=== PATIENT | male | born 1995 | race Caucasian/White ===

== ENCOUNTER 2021-02-22 18:39 | Emergency (ER) | payer BC ==
[~2021-02-22] VITALS: Ht 172.7 cm; Wt 75.6 kg
[2021-02-22 18:42] VITALS: BP 134/80
[2021-02-22 19:22] LABS: RAPID INFLUENZA A Negative (Negative); RAPID INFLUENZA B Negative (Negative)
== END 2021-02-22 19:53 | disposition home or self-care (01) ==
LOC: ED 19:09
DX: B34.9 Viral infection, unspecified (principal); Z20.822 Contact with and (suspected) exposure to COVID-19; R51.9 Headache, unspecified; M79.10 Myalgia, unspecified site
CPT/HCPCS: 87081; 87400; 87880; 99283; U0003; U0005